=== PATIENT | male | born 1990 | race Caucasian/White ===

== ENCOUNTER 2017-10-16 11:45 | Emergency (ER) | payer OTHER ==
--- NOTE | 2017-10-16 12:24 | EDM.PDOC ---
ED HPI GENERAL MEDICAL PROBLEM - General Chief Complaint: Skin Complaint Stated Complaint: PER PT HE WAS POSSIBLY BITTEN BY SOMETHING Time Seen by Provider: 10/16/17 11:47 Source of Information: Reports: Patient History Limitations: Reports: No Limitations - History of Present Illness INITIAL COMMENTS - FREE TEXT/NARRATIVE: HISTORY AND PHYSICAL: History of present illness: Patient is a 27-year-old male who presents to the emergency room today with complaints of a rash to bilateral arms and trunk. He states he checked into a hotel this morning and laid down to take a nap and woke up with a rash to bilateral forearms and some itching to his back. She also recently got a tattoo to his left inner bicep, and had noted there was a "zit" which she popped. He states he did get a moderate amount of green drainage from the site. He now has localized erythema and tenderness around the area. He denies any fever, chills, chest pain, shortness of breath or cough. Denies any abdominal pain, nausea, vomiting, diarrhea or constipation. He has no airway involvement, lip or tongue swelling. Review of systems: As per history of present illness and below otherwise all systems reviewed and negative. Past medical history: As per history of present illness and as reviewed below otherwise noncontributory. Surgical history: As per history of present illness and as reviewed below otherwise noncontributory. Social history: No reported history of drug or alcohol abuse. Family history: As per history of present illness and as reviewed below otherwise noncontributory. Physical exam: General: Developed and well-nourished 27 showed male. Alert and oriented. Nontoxic appearing and in no acute distress. HEENT: Atraumatic, normocephalic, pupils equal and reactive bilaterally, negative for conjunctival pallor or scleral icterus, mucous membranes moist, throat clear, neck supple, nontender, trachea midline. No drooling or trismus noted. No meningeal signs Lungs: Clear to auscultation, breath sounds equal bilaterally, chest nontender. Heart: S1S2, regular rate and rhythm without overt murmur Abdomen: Soft, nondistended, nontender. Negative for masses or hepatosplenomegaly. Negative for costovertebral tenderness. Pelvis: Stable nontender. Genitourinary: Deferred. Rectal: Deferred. Skin: Welt type rash to anterior/posterior trunk and bilateral upper extremities. Fine and raised. Small area, approx size of quarter noted to left inner bicep (recently got a tatto at this site 11 days prior) which is errythamous; nonfluctuant. 3 small pinpoint red welts to left mid bernard and 2 noted to the right lateral calf. Extremities: Atraumatic, negative for cords or calf pain. Neurovascular unremarkable. Neuro: Awake, alert, oriented. Cranial nerves II through XII unremarkable. Cerebellum unremarkable. Motor and sensory unremarkable throughout. Exam nonfocal. Notes: The area which she expressed drainage to the left bicep area does appear slightly reddened around the "head". Will treat as early cellulitis with Keflex. The welt type sporatic rash is suggestive of bed bugs; but only has a 2- 3 small areas noted to bilateral lower extremities. Will place patient on Medrol Dose pack and we did discuss measures to take if this is bed bugs. He is agreeable to plan of care and denies any further questions or concerns. Diagnostics: [] Therapeutics: SoluMedrol IM Impression: Rash Cellulitis, left arm Plan: 1. Wash your skin thoroughly with soap and water. Please take your prescribed medications as directed Please take benadryl over the counter routinely for itching for the next 24-72 hours. May use topical corticosporin cream to help with itching. Continue to monitor the left inner forearm for worsening sign of infection. 2. Wash all clothing and materials that may have come in contact, with hot water to prevent re-contamination. 3. Would suggest getting a new sleeping environment. 4. Follow-up with your primary care provider in the next 1-2 days. Return to the ED as needed and as discussed. Definitive disposition and diagnosis as appropriate pending reevaluation and review of above. Onset: Today Duration: Hour(s): Location: Reports: Chest, Back, Upper Extremity, Left, Upper Extremity, Right left arm Pain Score (Numeric/FACES): 8 - Related Data Allergies Allergy/AdvReac Type Severity Reaction Status Date / Time No Known Allergies Allergy Verified 10/16/17 11:56 Home Meds: Home Meds Cephalexin [Keflex] 500 mg PO BID 7 Days #14 capsule 10/16/17 [Rx] methylPREDNISolone [Medrol] 4 mg PO DAILY #1 dospk 10/16/17 [Rx] Past Medical History - Infectious Disease History Infectious Disease History: Reports: Chicken Pox - Past Surgical History HEENT Surgical History: Reports: Adenoidectomy, Tonsillectomy GI Surgical History: Reports: Hernia Repair/Other Musculoskeletal Surgical History: Reports: Shoulder Surgery Other Musculoskeletal Surgeries/Procedures:: knee replacement Social & Family History - Family History Family Medical History: Noncontributory - Tobacco Use Smoking Status *Q: Current Every Day Smoker Years of Tobacco use: 10 Packs/Tins Daily: 0.5 - Caffeine Use Caffeine Use: Reports: Energy Drinks, Soda - Recreational Drug Use Recreational Drug Use: No ED ROS GENERAL - Review of Systems Review Of Systems: ROS reveals no pertinent complaints other than HPI. ED EXAM, SKIN/RASH Exam: See Below (See dictation) Course - Vital Signs Last Recorded V/S: Last Vital Signs Temp 97.6 F 10/16/17 11:56 Pulse 93 10/16/17 11:56 Resp 20 10/16/17 11:56 BP 130/76 10/16/17 11:56 Pulse Ox 99 10/16/17 11:56 - Orders/Labs/Meds Meds: Medications Discontinued Medications Generic Name Dose Route Start Last Admin Trade Name Freq PRN Reason Stop Dose Admin Methylprednisolone Sodium Succinate 125 mg 10/16/17 12:26 Solu-Medrol IVPUSH 10/16/17 12:27 ONETIME ONE Methylprednisolone Sodium Succinate 125 mg 10/16/17 12:27 Solu-Medrol IM 10/16/17 12:28 ONETIME ONE Departure - Departure Time of Disposition: 12:24 Disposition: Home, Self-Care 01 Clinical Impression: Rash Cellulitis Qualifiers: Site of cellulitis: trunk Site of cellulitis of trunk: unspecified site Qualified Code(s): L03.319 - Cellulitis of trunk, unspecified - Discharge Information Prescriptions: Cephalexin [Keflex] 500 mg PO BID 7 Days #14 capsule methylPREDNISolone [Medrol] 4 mg PO DAILY #1 dospk Instructions: Rash, Cellulitis, Adult, [id number] Referrals: PCP,None [Primary Care Provider] - Forms: ED Department Discharge Additional Instructions: The following information is given to patients seen in the emergency department who are being discharged to home. This information is to outline your options for follow-up care. We provide all patients seen in our emergency department with a follow-up referral. The need for follow-up, as well as the timing and circumstances, are variable depending upon the specifics of your emergency department visit. If you don't have a primary care physician on staff, we will provide you with a referral. We always advise you to contact your personal physician following an emergency department visit to inform them of the circumstance of the visit and for follow-up with them and/or the need for any referrals to a consulting specialist. The emergency department will also refer you to a specialist when appropriate. This referral assures that you have the opportunity for follow-up care with a specialist. All of these measure are taken in an effort to provide you with optimal care, which includes your follow-up. Under all circumstances we always encourage you to contact your private physician who remains a resource for coordinating your care. When calling for follow-up care, please make the office aware that this follow-up is from your recent emergency room visit. If for any reason you are refused follow-up, please contact the [facility] at and asked to speak to the emergency department charge nurse. [facility] [address] [place] [id number] 1. Wash your skin thoroughly with soap and water. Please take your prescribed medications as directed Please take benadryl over the counter routinely for itching for the next 24-72 hours. May use topical corticosporin cream to help with itching. Continue to monitor the left inner forearm for worsening sign of infection. 2. Wash all clothing and materials that may have come in contact, with hot water to prevent re-contamination. 3. Would suggest getting a new sleeping environment. 4. Follow-up with your primary care provider in the next 1-2 days. Return to the ED as needed and as discussed.
[2017-10-16] MEDS ORDERED: methylPREDNISolone Sodium Succinate 125 MG/2 ML SDV IVPUSH ONE (12:26)
[2017-10-16] MEDS ORDERED: methylPREDNISolone Sodium Succinate 125 MG/2 ML SDV IM ONE (12:27)
== END 2017-10-16 12:45 | disposition home or self-care (01) ==
LOC: MW.ED 11:45
DX: L03.114 Cellulitis of left upper limb (principal); F17.210 Nicotine dependence, cigarettes, uncomplicated; Z79.899 Other long term (current) drug therapy
CPT/HCPCS: 96372; 99282; J2930; 99283